=== PATIENT | male | born 1995 | race Caucasian/White ===

== ENCOUNTER 2024-04-27 17:24 | Emergency (ER) | payer OTHER, SELFPAY ==
[2024-04-27 17:37] VITALS: BP 109/62; PULSE 111; PULSE 120; RESP 18; TEMP 37.1; O2SAT 94; O2SAT 95; BMI 26.0
--- NOTE | 2024-04-27 17:44 | ED.GENADULT ---
HPI - General Adult General Chief complaint: ETOH/Substance Use Stated complaint: mental eval, possible substance use Time Seen by Provider: 04/27/24 17:43 Source: patient and EMS Mode of arrival: EMS Limitations: no limitations History of Present Illness ED Provider: Brianna Gaston PA-C HPI narrative: Patient is a 29 year old assigned male at with a history of polysubstance abuse presenting to the emergency department today after taking an unknown pill. Patient is currently at [facility] and because today is his birthday, he wanted to be high, and took 1 single tablet from a co-resident. Patient states that he does not know what it was. Patient denies any dizziness, lightheadedness, abdominal pain, nausea, vomiting, fever, chills, blurry vision, double vision, loss of vision, chest pain, difficulty breathing, shortness of breath, back pain, night sweats, pain with urination, increased urinary frequency, increased urinary urgency, blood in his urine or stool, syncope or a near syncopal episode, recent trauma or falls, bowel incontinence, bladder incontinence, or any other complaints at this time. Relieving factors: none Exacerbating factors: none Associated symptoms: denies other symptoms Treatments prior to arrival: none Related Data Allergies Allergy/AdvReac Type Severity Reaction Status Date / Time No Known Allergies Allergy Verified 04/27/24 17:41 Review of Systems Constitutional: Constitutional: Reports no additional constitutional complaints, Denies chills, Denies fever(s) and Denies night sweats Eyes: Eyes: Reports no additional eye complaints, Denies blurry vision, Denies change in vision, Denies diplopia, Denies eye discharge, Denies loss of vision and Denies eye pain ENT: Denies dizziness Cardiovascular: Cardiovascular: Reports no additional cardiovascular complaints, Denies chest pain, Denies lightheadedness, Denies Loss of Consciousness and Denies dyspnea Respiratory: Respiratory: Reports no additional respiratory complaints and Denies dyspnea Gastrointestinal: Gastrointestinal: Reports no additional gastrointestinal complaints, Denies abdominal pain, Denies melena, Denies hematochezia, Denies change in bowel habits and Denies change in stool character Genitourinary: Genitourinary: Reports no additional male genitourinary complaints, Denies hematuria, Denies oliguria, Denies difficulty urinating, Denies dysuria, Denies urinary frequency, Denies urinary hesitancy, Denies urinary incontinence and Denies urinary urgency Musculoskeletal: Musculoskeletal: Reports no additional musculoskeletal complaints, Denies numbness and Denies tingling Neurologic: Denies dizziness, Denies loss of vision, Denies numbness and Denies tingling Psychiatric: Psychiatric: Reports no additional psychiatric complaints Endocrine: Endocrine: Reports no additional endocrine complaints Hematologic/Lymphatic: Hematologic/Lymphatic: Reports no additional hematologic/lymphatic complaints Allergic/Immunologic: Allergic/Immunologic: Reports no additional allergic/immunologic complaints [facility] Past Medical History Attestation statement: The following information was validated with the patient. Source: old records reviewed and nursing notes reviewed Social History Social History Smoked in Last 30 Days: Yes Use of substances other than those prescribed or required for medical reasons: Yes Substance Use Type: Crack/Cocaine, Heroin and Opiates Substance Use Frequency: Daily Last Used Substance: Weeks (ago) Advance Directives: No Advance Directives Information Provided: No Do you have a plan to hurt others: No Plan Physical Exam ED Vital Signs: Vital Signs - 24 hr 04/27/24 17:37 04/27/24 17:46 Temperature 98.8 F 98.8 F Pulse Rate 111 H 111 H Respiratory Rate 18 18 Blood Pressure 109/62 109/62 Pulse Oximetry 95 95 Oxygen Delivery Method Room Air Room Air BMI result Body Mass Index 26.0 Const General: cooperative, no acute distress, alert and awake Nutritional Appearance: well nourished Orientation/consciousness: patient oriented x3 Limitations: no limitations [facility] Head: Yes normal to inspection and Yes atraumatic Ears: hearing grossly normal bilaterally and external ears normal General nose exam: Normal external nose present, no nasal discharge noted and no epistaxis Face and sinus: Yes normal facial exam, No abrasion and No laceration Mouth: Normal oral and palatal mucosa present, no drooling and no muffled voice Eyes General: appearance normal, both eyes and all related structures Periorbital: periorbital findings normal Eyelids: Yes eyelids normal Conjunctivae: conjunctivae normal Pupils: Equal, round and reactive pupils present EOM: EOMs intact bilaterally Neck Neck: Yes normal visual inspection, Yes full ROM and Yes no lymphadenopathy Chest Chest palpation & inspection: normal inspection of the chest Resp Effort & Inspection: normal respiratory effort and able to speak in complete sentences GI Inspection: Yes normal to inspection Neuro General: patient oriented x3, moves all extremities and CN's II-XI intact bilaterally Cranial nerves: Yes Equal, round and reactive pupils present Cognition (Neuro): normal cognition Extrem General: Yes normal to inspection, Yes full ROM and Yes capillary refill normal Psych Appearance: grossly normal Mental Status: mental status grossly normal Affect: normal affect Attitude: cooperative Thought process: Normal thought process present Thought content: Normal thought content present Insight: Good insight present (Psych) Medical Decision Making Medical Decision Making [facility] Narrative: Patient is a 29 year old assigned male at with a history of polysubstance abuse presenting to the emergency department today after taking an unknown pill. Patient's physical exam was largely unremarkable. Patient was somewhat tired during his time in the department but otherwise alert and oriented. Patient's blood work was unremarkable. Patient's urine showed evidence of methadone, suboxone, and fentanyl. I explained my physical exam findings as well as all test results to the patient. I answered all questions asked by the patient. Patient was allowed to rest in the department. I stressed the importance of the patient taking his medication as directed (either prescribed or as the over the counter packaging recommends). I stressed the importance of the patient not ingesting unknown medications given to him by co-residents. I stressed the importance of the patient following up with his primary care provider. I stressed the importance of the patient returning to the emergency department immediately if his symptoms were to worsen or if he were to develop any dizziness, shortness of breath, difficulty breathing, chest pain, blurry vision, loss of vision, nausea, vomiting, abdominal pain, fever, chills, back pain, or any other complaints. Patient verbalized agreement and understanding with this treatment plan and discharge back to [facility]. Differential Diagnosis Differential Diagnoses: The differential diagnosis associated with the presentation includes Unknown substance use Polysubstance abuse Admission/Observation Consideration of admission/observation: Escalation of care including admission/observation considered Patient would have been admitted to the hospital had his work up had any findings where hospital admission was appropriate and his clinical presentation warranted hospital admission. Lab Data [facility] Lab Attestation statement: I reviewed the patient's lab results. My interpretation of these results are in the [facility] Rationale portion of this note. 04/27/24 17:51 04/27/24 17:51 Labs: Lab Results 03/22/25 Range/Units 17:51 WBC 8.3 (4.8-10.8) X10*3/uL RBC 4.60 (4.60-5.80) X10*6/uL Hgb 14.2 (14.0-18.0) g/dl Hct 42.0 (42.0-52.0) % MCV 91.3 (80.0-98.0) fL MCH 30.9 (27.0-33.0) pg MCHC 33.8 (31.0-36.0) g/dl RDW 12.7 (11.0-16.0) % Plt Count 243 (160-400) X10*3/uL MPV 8.7 L (9.4-12.4) fL Immature Gran % (Auto) 0.2 (0.0-0.4) % Neut % (Auto) 84.5 H (45-73) % Lymph % (Auto) 9.1 L (20-40) % [place] % (Auto) 5.4 (2-11) % Eos % (Auto) 0.2 (0-4) % Baso % (Auto) 0.6 (0-2) % Lymph # (Auto) 0.8 L (1.2-4.9) X10*3/uL [place] # (Auto) 0.5 (0.1-1.2) X10*3/uL Eos # (Auto) 0.0 (0.0-0.4) X10*3/uL Baso # (Auto) 0.1 (0.0-0.2) X10*3/uL Abs Immat Gran (auto) 0.02 (0.00-0.03) X10*3/uL Absolute Neuts (auto) 7.0 (2.0-8.3) x10*3/uL Absolute Nucleated RBC 0.000 (0.0-0.012) X10*3/uL Nucleated RBC % (auto) 0.0 (0.0-0.2) /100WBC Sodium 139 (135-145) mmol/L Potassium 5.0 (3.3-5.1) mmol/L Chloride 98 (96-108) mmol/L Carbon Dioxide 31 H (22-29) mmol/L Anion Gap 15 (12-20) BUN 11 (9-16) mg/dL Creatinine 1.09 (0.5-1.4) mg/dL Estim Creat Clear Calc 108.7 Estimated GFR > 60 Random Glucose 151 H (60-115) mg/dL Calcium 9.4 (8.4-10.2) mg/dL Total Bilirubin 0.4 (0.0-1.0) mg/dL AST 17 (5-37) U/L ALT 10 (0-40) U/L Alkaline Phosphatase 55 (39-117) U/L Total Protein 8.4 H (6.5-8.0) g/dL Albumin 4.2 (3.5-5.0) g/dL Salicylates < 5.0 L (15-30) mg/dL Urine Opiates Screen Not Detected (Not Detect) Ur Buprenorphine Scrn Positive H (Not Detect) ng/mL Ur Oxycodone Screen Not Detected (Not Detect) ng/mL Urine Methadone Screen Positive H (Not Detect) ng/mL Urine Fentanyl Screen POSITIVE H (Not Detect) Ur Barbiturates Screen Not Detected (Not Detect) Ur Phencyclidine Scrn Not Detected (Not Detect) Ur Amphetamines Screen Not Detected (Not Detect) U Benzodiazepines Scrn Not Detected (Not Detect) Urine Cocaine Screen Not Detected (Not Detect) U Marijuana (THC) Screen Not Detected (Not Detect) Ethyl Alcohol < 10 mg/dL Independent Historian Clinical information obtained from an independent historian. History obtained from or confirmed by: EMS (EMS provided additional history and confirmed the history provided by the patient.) Discharge Plan Discharge Clinical Impression: Substance use Patient Disposition: Xfer Psychiatric Hosp Transfer Details: Back to [facility] Instructions: Polysubstance Abuse (ED) Additional Instructions: You were seen today for substance use / abuse however, you are already staying within a substance use / abuse facility for treatment. Return to the emergency department immediately if your symptoms worsen or if you develop any numbness, tingling, dizziness, shortness of breath, difficulty breathing, chest pain, blurry vision, loss of vision, nausea, vomiting, abdominal pain, fever, chills, back pain, or any other complaints. Please see the information below about our Patient Portal. If you are not yet enrolled in the [facility] Patient Portal, you will receive an enrollment email invitation following your visit to any [facility] care setting. You may also self-enroll in the Patient Portal by visiting our website: [email or web address] The following information is required to access the Patient Portal: - Your [facility] Medical Record Number - Your personal home email address (must match what is in your electronic medical record, Registration staff can assist with this) - Name - Date of Capabilities of the Patient Portal: - Message some providers - View upcoming appointments - Access your health summary, medical history, and visit history - View current conditions and allergies - View procedure and lab results - View your medications, including guidelines, side effects, and precautions - Complete pre-appointment questionnaires requested by your provider - Ready summary reports of your office visits and procedures To access the Patient Portal Mobile Martir, follow these directions: - Search Fiz in the Martir Store or Audioscribe Store - Download the Martir - Search for [facility] - Enter your login/password Referrals: [facility] [place] [Provider Group] (Call to establish and follow up with a primary care provider. If you already have a primary care provider, please follow up with them.) [facility] Primary Care, Joseph [Provider Group] (Call to establish and follow up with a primary care provider. If you already have a primary care provider, please follow up with them.) [facility] Primary Care,Melania [Provider Group] (Call to establish and follow up with a primary care provider. If you already have a primary care provider, please follow up with them.) [facility] Care[facility] [Provider Group] (Call to establish and follow up with a primary care provider. If you already have a primary care provider, please follow up with them.) Print Language: Portuguese
[2024-04-27 17:46] VITALS: BP 109/62; PULSE 111; RESP 18; TEMP 37.1; O2SAT 95
--- NOTE | 2024-04-27 17:50 | PC.NURSE ---
Addendum entered by Marilu Helms RN 04/27/24 18:37: Pt denies SI/HI at this time. Pt adamantly denies that taking the reported pill was an attempt to take his life. Original Note: Pt comes to ED today via EMS from [facility] for reports of decrease responsiveness and O2 sat of 80% Pt reports today is his birthday and he took 1 pill (Pt reports Gabapentin) from another resident. Per EMS, Pt was found by [facility] staff to be difficult to arouse and with an O2 sat of 80%. With EMS, PTs was sating at 94%. Pt is alert and oriented at time of arrival. Speech is slurred. Pt is calm and cooperative. VSS, sating at 95% Security present and change Pt into hospital attire. Blood work and urine spec sent to lab. Pt resting comfortably on stretcher. 1:1 sitter present.
[2024-04-27 17:55] LABS: MANUAL DIFF FLAG NO
[2024-04-27 17:57] LABS: Basophils Absolute Auto 0.1 X10*3/uL (0.0-0.2); Basophils Percent Auto 0.6 % (0-2); Eosinophils Percent Auto 0.2 % (0-4); Hemoglobin 14.2 g/dl (14.0-18.0); Imm Gran Abs Auto 0.02 X10*3/uL (0.00-0.03); Imm Gran Pct Auto 0.2 % (0.0-0.4); Lymphocytes Absolute Auto 0.8 X10*3/uL (1.2-4.9); Lymphocytes Percent Auto 9.1 % (20-40); Mean Corpuscular HGB Conc 33.8 g/dl (31.0-36.0); Mean Corpuscular Hemoglobin 30.9 pg (27.0-33.0); Mean Corpuscular Volume 91.3 fL (80.0-98.0); Mean Platelet Volume 8.7 fL (9.4-12.4); Monocytes Absolute Auto 0.5 X10*3/uL (0.1-1.2); Monocytes Percent Auto 5.4 % (2-11); Neutrophils Percent Auto 84.5 % (45-73); Platelet Count 243 X10*3/uL (160-400); Red Cell Distribution Width 12.7 % (11.0-16.0); White Blood Count 8.3 X10*3/uL (4.8-10.8)
--- OUTSIDE RECORDS SUMMARY | 2024-04-27 17:57 | XMS_ITS | Clinical Summary ---
Author Organization [email or web address] Address [address] [place] [address] [address] Care Team Providers Care Naval Aircre[employer] Name Role Phone Dale Pressley Md Unavailable [phone] Lake Tabares Md Primary Care Provider [phone] Allergies No known active allergies Medications QUEtiapine (SEROQUEL) 300 mg tablet Take 1 tablet by mouth daily 8 Active divalproex 500 mg tablet,delayed release (DR/EC) Take 1 tablet by mouth daily 8 Active ketoconazole 2 % Cream Apply to feet and between toes twice daily x 1 month 60 gram 2 8 Active terbinafine HCl 250 mg tablet 1 tab daily x 6 weeks (42 pills), then retest bloodwork. If normal, refill for an additional 6 weeks (a full course is 12 weeks, 84 pills). 42 tablet 1 8 Active Active Problems Problem Noted Date Diagnosed Date Extensive tattoos 06/06/2017 Overview (06/06/2017): Told no more Schizoaffective disorder, bipolar type 8 Overview (06/06/2017): Disability - bipolar and schizophrenia - Dr Beard - [phone] - [facility] Physical exam, annual 06/06/2017 Overview (06/06/2017): Pending - 2018 Wt Readings from Last 5 Encounters: 06/06/17 : 185 lb 4.8 oz (84.1 kg) 11/11/10 : 197 lb (89.4 kg) 06/22/10 : 186 lb (84.4 kg) 05/06/09 : 154 lb (69.9 kg) 04/21/09 : 150 lb (68 kg) Estimated body mass index is 26.4 kg/(m^2) as calculated from the following: Height as of this encounter: 5' 10.25 (1.784 m). Weight as of this encounter: 185 lb 4.8 oz (84.1 kg). Rey de la Tourette's disorder 12/05/2006 Obsessive-compulsive disorder 12/05/2006 Learning difficulty 12/05/2006 Immunizations Name Administration Dates Next Due DTaP Vaccine 10/08/1999, 6,1994,09/06,1994 HFlu B Conj (Unspecified Formulation) ,1994,1994,06/27 Hep B Vaccine (Unspecified Formulation) 02/17/1995,1994,1994 MMR Vaccine 10/08/1999,08/08/1995 Meningococcal ACWY (Menactra ) Conjugate Vaccine 12/05/2006 Polio Vaccine (Inactivated) 10/08/1999 Polio Vaccine (Oral,Trivalent) 1994,1994,1994 TdaP 12/05/2006 Varicella Disease 02/06/1995 Medical History Medical History Date Comments Extensive tattoos 06/06/2017 Rey de la Tourette's disorder 12/05/2006 Schizoaffective disorder, bipolar type ([facility]) 06/06/2017 Learning difficulty 12/05/2006 Obsessive-compulsive disorder 12/05/2006 Family History Medical History Relation Comments Substance abuse Brother Relation Status Comments Brother Social History Tobacco Use Types Packs/Day Years Used Date Smoking Tobacco: Every Day Cigarettes 0.1 6 Smokeless Tobacco: Never Comments:2 cigarettes/day - trhying to quit Alcohol Use Standard Drinks/Week Comments Yes 0 (1 standard drink = 0.6 oz pur e alcohol) Sex and Gender Information Value Date Recorded Sex Assigned at Not on file Legal Sex Male 3:37 AM EDT Gender Identity Not on file Sexual Orientation Not on file Occupation Industry Job Start Date Job End Date on disability Not on file Not on file Not on file Obstetrics History Last Filed Vital Signs Vital Sign Reading Time Taken Comments Blood Pressure 104/68 06/06/2017 12:33 PM EDT Pulse 68 06/06/2017 12:33 PM EDT Temperature 37 ??C (98.6 ??F) 06/06/2017 12:33 PM EDT Respiratory Rate 16 06/06/2017 12:33 PM EDT Oxygen Saturation 96% 06/15/2010 10:54 AM EDT Inhaled Oxygen Concentration - - Weight 84.1 kg (185 lb 4.8 oz) 06/06/2017 12:33 PM EDT Height 178.4 cm (5' 10.25 ) 06/06/2017 12:33 PM EDT Body Mass Index 26.4 06/06/2017 12:33 PM EDT Plan of Treatment Health Maintenance Due Date Last Done Comments OFFICE VISIT 1994 * GLUCOSE OR A1C SCREENING - Q3YR 2012 05/08/2007 HEP B INITIAL SCREENING 2012 HEP C SCREENING 2012 HIV SCREENING 2012 LIPID SCREENING 2014 PERIODIC HEALTH REVIEW 2016 DTAP/TDAP/TD VACCINE (7 - Td or Tdap) 12/05/2016 12/05/2006, 10/08/1999, 08/08/1995, Additional history exists COVID-19 Vaccine ( season) 2023 FLU SEASONAL (#1) 10/08/2023 HEPATITIS B VACCINE Completed 02/17/1995, 1994, 1994 HAEMOPHILUS INFLUENZA VACCINE Completed 08/18/1995, 1994, 1994, Additional history exists POLIO VACCINE Completed 10/08/1999, 11/06, 1994, Additional history exists HEPATITIS A VACCINE Aged Out No longe r eligible based on patient's age to complete this topic PNEUMOCOCCAL VACCINE(S) Aged Out No l onger eligible based on patient's age to complete this topic RSV Vaccine Infant//toddler Aged Out No longer eligible based on patient's age to complete this topic Procedures Procedure Name Priority Date/Time Associated Diagnosis Comments BASIC METABOLIC PROFILE Routine 05/08/2007 4:05 PM EDT HEMATURIA from Last 3 Months or Most Recently Relevant to Health Maintenance Results * BASIC METABOLIC PANEL (05/08/2007 4:05 PM EDT) SODIUM 138 135 - 145 mmol/L [facility] POTASSIUM 4.2 3.6 - 5.2 mmol/L [facility] CHLORIDE 105 100 - 112 mmol/L [facility] CARBON DIOXIDE 28 24 - 34 mmol/L [facility] GLUCOSE 101 75 - 110 mg/dL [facility] BUN 17.0 5.0 - 24.0 mg/dL [facility] CREATININE 0.8 0.5 - 1.6 mg/dL [facility] CALCIUM 9.4 8.3 - 9.9 mg/dL [facility] Comment: Prior to 07/12/2005 calcium normal range was 8.4-10.6 mg/dL. From 07/12/2005 to ?? 08/26/2005 calcium normal range was 8.0-9.4 mg/dL. From 08/26/2005 forward calcium normal range is 8.3-9.9 mg/dL. 05/08/2007 4:05 PM EDT 05/08/2007 4:05 PM EDT Bobby Dupree [facility] GENERAL LAB Final Resu lt [facility] [address] [place] [address] from Last 3 Months or Most Recently Relevant to Health Maintenance Care Teams [employer] Relationship Specialty Start Date End Date Dale Pressley MD [address] [place] [address] PCP - Payer 06/05/17 Lake Tabares MD [address] [place] [address] PCP - General Internal Medicine 06/05/17
--- OUTSIDE RECORDS SUMMARY | 2024-04-27 17:57 | XMS_ITS ---
Author Organization [facility] Address [address] [place] [address] Care Team Providers Care Grade Foreman Name Role Phone Joseelizabet Jay Unavailable [phone] REASON FOR VISIT ELIGIBILITY Encounters Encounter Location Date Provider Diagnosis [facility] [address] [place], [place] [id number] 11/28/2023 Jay White Plan Of Treatment No Information Progress Notes * Jason BORGESDOB:[birth year] (28 yo M)Acc No.[id number]:11/28/2023 Patient:?Jason BORGES :1995???Age:28 Y???Sex:Male Address:[address] [place], [address] * true * Date:? Generated for Printi ng/Faemelyng/eTransmitting on:?2024 12:42 PM EDT
--- OUTSIDE RECORDS SUMMARY | 2024-04-27 17:57 | XMS_ITS ---
Author Organization [facility] Address [address] [place] [address] Care Team Providers Care Concrete Paving Supervisor Name Role Phone Joseelizabet Jay Unavailable [phone] REASON FOR VISIT ELIGIBILITY Encounters Encounter Location Date Provider Diagnosis [facility] [address] [place], [place] [id number] 11/28/2023 Jay White Plan Of Treatment No Information Progress Notes * Jason BORGESDOB:[birth year] (28 yo M)Acc No.[id number]:11/28/2023 Patient:?Jason BORGES :1995???Age:28 Y???Sex:Male Address:[address] [place], [address] * true * Date:? Generated for Printi ng/Faemelyng/eTransmitting on:?2024 12:42 PM EDT
--- OUTSIDE RECORDS SUMMARY | 2024-04-27 17:57 | XMS_ITS | Patient Health Record ---
Author Organization [facility] Address [address] [place], [place] [id number] Care Team Providers Care Automated Equipment Engineer Technician Name Role Phone Thiago Sethi Unavailable [phone] Allergies No Known Allergies Reason For Referral No Information Medications Medication SIG (Take, Route, Frequency, Duration) Notes Start Date End Date Status FLUoxetine HCl 40 MG 1 capsule Orally On ce a day Active Divalproex Sodium 500 MG 1 tablet Orally Once a day Active hydrOXYzine HCl 25 MG 1 tablet as needed Orally Once a day Active QUEtiapine Fumarate 400 MG 1 tablet Oral ly Once a day Active Vital Signs Blood pressure diastolic 58 mm Hg 07/25/2023 Height 72 in 07/25/2023 Blood pressure systolic 96 mm Hg 07/25/2023 Weight 145 lbs 07/25/2023 BMI 19.66 kg/m2 07/25/2023 Encounters Encounter Location Date Provider Diagnosis [facility] [address] [id number] 07/25/2023 Anit Sethi Fracture of mandible , unspecified, sequela S02.609S [facility] [address] [id number] 07/24/2023 Anit Sethi [facility] [address] [id number] 07/26/2023 Anit Sethi Assessments Encounter Date Diagnosis (ICD Code) Assessment Notes Treatment Notes Treatment Clinical Notes Section Notes 07/25/2023 Fracture of mandible, unspecified, sequela (ICD-10 - S02.609S) The patient has sustained a right mandible fracture with an open bite deformity. We will refer him to the surgery department at [facility] for consideration of mandibulomaxillary fixation for potentially 4 to 6 weeks. Plan Of Treatment No Information Insurance Providers Payer Name Payer Address Payer Phone Subscriber Number Group Number Insured Name Patient Relationship to Insured Coverage Start Date Coverage End Date [address] [place] [address] [id number] JAMES BORGES Self - patient is the insured
--- OUTSIDE RECORDS SUMMARY | 2024-04-27 17:58 | XMS_ITS ---
Author Organization [facility] Address [address] [place], [place] [id number] Care Team Providers Care Head Of Cytogenetics Name Role Phone Navdeep, Anit Unavailable [phone] REASON FOR VISIT MASS AC CALLED Encounters Encounter Location Date Provider Diagnosis [facility] [address] [place], [place] [phone] 07/26/2023 Anit Sethi Plan Of Treatment No Information Progress Notes * GLADYSJAMES RAMÍREZDOB:[birth year] (28 yo M)Acc No.[id number]:07/26/2023 Patient:?JAMES BORGES :1995???Age:28 Y???Sex:Male Address:[address], [place], [address] * true * Date:? Generated for Printi byron/Tegang/eTransmitting on:?2024 12:42 PM EDT
--- OUTSIDE RECORDS SUMMARY | 2024-04-27 17:58 | XMS_ITS ---
Author Organization [facility] Address [address] [place], [place] [id number] Care Team Providers Care Alternative Energy Technician Name Role Phone Navdeep, Ansergey Unavailable [phone] REASON FOR VISIT 07/25/2023 SETHI 10 Encounters Encounter Location Date Provider Diagnosis [facility] [address] [place], [place] [id number] 07/24/2023 Anit Sethi Plan Of Treatment No Information Progress Notes * ALYSSAJAMES MAXDOB:[birth year] (29 yo M)Acc No.[id number]:07/24/2023 Patient:?JAMES BORGES :1995???Age:28 Y???Sex:Male Address[address] [place], [address] * * Date:?
--- OUTSIDE RECORDS SUMMARY | 2024-04-27 17:58 | XMS_ITS | Data Portability ---
Author Organization [facility] UROLOGY Address [address] [address] Assessment Encounter Date Assessment Date Assessment LastModified by Organization Details LastModified Time 12/26/2023 12/26/2023 28M with PMHx of extensive mood disorder, who presents to the clinic with his mother Marilu for medication refills. Was recently admitted to [facility] psychiatric unit, got discharged from [facility]; needs new psychiatry referral. He is feeling a little tired today but denies chest pain, palpitations, or other discomforts. [email or web address] Not available 12/26/2023 12:15:16 Plan of Treatment Reminders Order Date Submit Date Provider Last Modified By Organization Details Last Modified Time Details Appointments None recorded. Lab CMP, serum or plasma 2022 023 [facility], [address], [address], 3 03:17:40 microalbumi n/creatinin e, mass ratio, urine 2022 023 [facility], [address], [address], 3 03:17:40 lipid panel, serum 2022 023 [facility], [address] [place] [address], [address], 3 03:17:41 HbA1c (hemoglobin A1c), blood 2022 023 [facility], [address], [address], 3 03:17:41 CBC w/ auto diff 2022 023 [facility], [address] [place] [address], [address], 3 03:17:42 urinalysis, dipstick, reflex micro 2022 023 [facility] [facility], [address], [address], 3 03:17:42 hepatitis C virus Ab, serum 2022 023 [facility], [address] [place] [address], [address], 3 03:17:42 TSH, serum or plasma 2022 023 [place] [facility], [address] [place] [address], [address], 3 03:17:43 Referral psychiatris t referral 2023 024 LIDA Palma MD, [address] [facility] [address], [place], [address], 4 04:03:25 urologist referral - infertility 2022 023 Young Myrick MD, 31 [facility] 203, [place], [address], 3 05:19:43 Procedures None recorded. Surgeries None recorded. Imaging None recorded. Medication Orders quetiapine 50 mg tablet 2023 024 [facility]1871, [address] [place], [address], 4 12:01:15 divalproex ER 500 mg tablet,exte nded release 24 hr 2023 024 [facility], [address] [place], [address], 4 12:01:15 sildenafil 100 mg tablet [address], [address] [facility], [place], [address], 4 11:57:17 clonazepam 0.5 mg tablet 2022 023 [address] [facility] [address] [place] [address], [address], 4 11:56:26 fluoxetine 20 mg capsule 2022 023 [address] [address] [address] [place] [address], [address], 4 11:56:50 Seroquel 400 mg tablet 2022 023 [address] [address] [place] [address], [address], 4 11:55:30 divalproex ER 500 mg tablet,exte nded release 24 hr 2022 023 [facility] [address] [place] [address], [address], 3 13:29:34 clonazepam 0.5 mg tablet 2022 023 [address] [place], [address], 4 11:56:26 Depakote ER 500 mg tablet,exte nded release 2022 023 [facility] [address] [place] [address], [address], 3 22:14:08 Seroquel 400 mg tablet 2022 023 [email or web address] [facility], [address] [place], [address], 4 11:55:30 fluoxetine 20 mg capsule 2022 023 [email or web address] [facility]acy #1873, [address] [place], [address], 4 11:56:50 sildenafil 100 mg tablet [address] [facility], [address] [place], [address], 11:57:17 Patient TargetsNo targets recorded. Patient Instructions Encounter Date Encounter Id Patient Instructions Last Modified By Organization Details Last Modified Time 06/14/2022 [id number] infertility: car e instructions [email or web address] Not available 06/14/2022 14:15:07 10/14/2022 [id number] schizophrenia: care instructions Not available 10/15/2022 18:23:57 learning about mood disorders Not available 10/14/2022 17:19:58 obsessive-compul s norman disorder: care instructions Not available 10/14/2022 17:19:58 07/28/2023 [id number] broken jaw: care instructions Not available 07/29/2023 09:43:03 eating when your jaw IS wired: care instructions Not available 07/29/2023 09:43:03 Reason for Referral Urologist Referral for Male infertility infertility Referring Physician: Ronaldo Reyes, Internal Medicine, Encounter Date: 06/14/2022 Psychiatrist Referral for Mo od disorder history of mood disorder on Seroquel, haldol injection, and divalproex Referring Physician: Pauline Hull, Internal Medicine, Encounter Date: 12/26/2023 Results Created Date Observation Date Name Description Value Unit Range Abnormal Flag Note LastModifiedBy Organization Detail LastModifiedTime 06/19/19 23 06/18/2022 imagi ng inter preta tion No observ ation record ed. [facility] (Medical Records) [address] [place], [address], 06/19/2022 00:54:42 08/05/19 23 08/04/2022 US, scrot um No observ ation record ed. [email or web address] [facility] (Medical Records) [address] [place], [address], 12/21/2023 21:48:20 06/04/19 24 06/04/2023 XR, chest No observ ation record ed. [facility] (Medical Records) [address] [place], [address], 04/18/2024 15:38:32 06/04/19 24 06/04/2023 elect rosalie stan am No observ ation record ed. [facility] Medical Records [address] [place], [address], 04/18/2024 15:38:42 Result Notes None recorded. Problems Name Problem SNOMED Code Status Onset Date Resolution Date Notes Provider Name and Address Organization Details Recorded Time Annual visit Active 2021 RONALDO REYES MD [address] [place] [address], [address] 8, [facility] 2 10:49:32 Joint pain 45490895 Active 2021 RONALDO REYES MD [address] [place] [address], [address] 8, [facility] 2 10:49:32 Anxiety 96010716 Active 2021 RONALDO REYES MD [address] [place] [address], [address] 8, [facility] 2 10:49:32 Bipolar disorder 54262183 Active 2021 RONALDO REYES MD [address] [place] [address], [address] 8, [facility] 2 10:49:32 Schizophrenia 88993488 Active 2021 RONALDO REYES MD [address] [place] [address], [address] 8, [facility] 2 10:49:32 Chronic pain syndrome 590828148 Active 2021 RONALDO REYES MD [address] [place] [address], [address] 8, [facility] 2 12:10:12 Mood disorder 26344628 Active 2021 RONALDO REYES MD [address] [place] [address], [address] 8, [facility] 2 12:10:12 Substance abuse 45640929 Active 2022 RONALDO REYES MD [address] [place] [address], [address] 8, [facility] 3 09:55:13 Erectile dysfunction 834399627 Active 2022 RONALDO REYES MD [address] [place] [address], [address] 8, [facility] 3 09:56:12 Male infertility 8148018 Active 2022 RONALDO REYES MD [address] [place] [address], [address] 8, [facility] 3 14:08:38 Obsessive-comp ulsive disorder 052332729 Active 2022 RONALDO REYES MD [address] [place] [address], [address] 8, [facility] 3 17:06:26 Fracture of mandible 191871089 Active 2023 RONALDO REYES MD [address] [place] [address], [address] 8, [facility] 4 09:43:00 Problem Notes None recorded. Procedures Surgical History None recorded. Imaging Results Imaging Date Name Status LastModified by Organization Details LastModified Time 06/18/2022 imaging interpretation completed [facility] (Medical Records) [address] [place], [address], 06/19/2022 00:54:42 08/04/2022 US, scrotum completed [email or web address] [facility] (Medical Records) [address] [place], [address], 12/21/2023 21:48:20 06/04/2023 XR, chest completed [facility] (Medical Records) [address] [place], [address], 04/18/2024 15:38:32 06/04/2023 electrocardiogram completed [facility] Medical Records [address] [place], [address], 04/18/2024 15:38:42 Procedure Notes None recorded. Medical Equipment None Reported. Allergies No known drug allergies Medications Name Sig Start Date Stop Date Status Note LastModified by Organization Details LastModified Time clonidine HCl 0.1 mg tablet 12/25 completed Not Available Not Available Not Available haloperidol 5 mg tablet active Not Available Not Available Not Available levetiracet am 500 mg tablet TAKE 1 TABLET BY MOUTH TWICE A DAY 12/25 completed Not Available Not Available Not Available diclofenac ER 100 mg tablet,exte nded release 24 hr 03/23 completed Not Available Not Available Not Available haloperidol decanoate 100 mg/mL intramuscul ar solution INJECT 1.5 ML (150 MG TOTAL) DIRECTED EVERY 28 DAYS. NEXT INJECTION IS DUE ON active Not Available Not Available No t Available clonazepam 0.5 mg tablet TAKE 1 TABLET TWICE A DAY BY ORAL ROUTE NEEDED. 12/25 completed Not Available Not Available Not Available prednisone 5 mg tablet TAKE 7 TABLETS BY MOUTH ONCE A DAY THEN DECREASE BY 1 TABLET EACH DAY 7 6 5 4 3 2 1 03/23 completed Not Available Not Available Not Available divalproex 500 mg tablet,jean carlos yed release TAKE 1 TABLET BY MOUTH AT BEDTIME DIRECTED 11/15 completed Not Available Not Available Not Available quetiapine 100 mg tablet active Not Available Not Available Not Available sildenafil 100 mg tablet Take 1 tablet every day by oral route. 12/25 completed Not Available Not Available Not Available cephalexin 500 mg capsule 03/23 completed Not Available Not Available Not Available divalproex ER 500 mg tablet,exte nded release 24 hr Take 2 tablets every day by oral route at bedtime for 90 days. active Not Available Not Available No t Available gabapentin 300 mg capsule TAKE 1 CAPSULE BY MOUTH EVERY NIGHT AT BEDTIME FOR 3 DAYS THEN TAKE 1 CAPSULE TWICE DAILY FOR 3 DAYS THEN TAKE 1 CAPSULE THREE TIMES DAILY 03/23 completed Not Available Not Available Not Available haloperidol 2 mg tablet active Not Available Not Available Not Available fluoxetine 20 mg capsule Take 1 capsule every day by oral route. 12/25 completed Not Available Not Available Not Available hydroxyzine pamoate 25 mg capsule 12/25 completed Not Available Not Available Not Available divalproex ER 250 mg tablet,exte nded release 24 hr TAKE 3 TABLETS BY MOUTH TWICE A DAY 12/25 completed Not Available Not Available Not Available quetiapine 50 mg tablet Take 1 tablet every 6 hours by oral route as needed for 30 days. 2023 active Not Available Not Available Not Avai lable quetiapine 400 mg tablet TAKE 1 TABLET BY MOUTH TWICE A DAY active Not Available Not Available No t Available Vitals Date Recorded Body height Body mass index (BMI) Body weight Heart rate Oxygen saturation Oxygen saturation in Arterial blood by Pulse oximetry Systolic blood pressure Diastolic blood pressure Provider Name and Address Organization Details Last Updated DateTime 3 180.34 cm 20.2 kg/m2 66525.4 6 g 73 /min 98 % 98 % 127 mm[Hg] 79 mm[Hg] RONALDO REYES MD [address] [place] [phone] [place] [address] 3 13:34:30 Date Recorded Body height Heart rate Oxygen saturation Oxygen saturation in Arterial blood by Pulse oximetry Body mass index (BMI) Body weight Respiratory rate Heart rate Pain severity - 0-10 verbal numeric rating [Score] - Reported Systolic blood pressure Diastolic blood pressure Provider Name and Address Organization Details Last Updated DateTime 3 180.34 cm 72 /min 98 % 98 % 19.1 kg/m2 22262.4 4 g 1 /min 72 /min 0 110 mm[Hg] 72 mm[Hg] RONALDO REYES MD [address] [place] [phone] [place] [address] 3 17:59:50 Date Recorded Body height Body mass index (BMI) Body weight Heart rate Oxygen saturation Oxygen saturation in Arterial blood by Pulse oximetry Respiratory rate Heart rate Pain severity - 0-10 verbal numeric rating [Score] - Reported Systolic blood pressure Diastolic blood pressure Provider Name and Address Organization Details Last Updated DateTime 3 180.34 cm 19.1 kg/m2 64944.4 4 g 72 /min 98 % 98 % 16 /min 72 /min 0 110 mm[Hg] 72 mm[Hg] RONALDO REYES MD [address] [place] [address], [address], [facility] 3 00:58:11 Date Recorded Body height Heart rate Oxygen saturation Oxygen saturation in Arterial blood by Pulse oximetry Body mass index (BMI) Body weight Respiratory rate Systolic blood pressure Diastolic blood pressure Provider Name and Address Organization Details Last Updated DateTime 4 180.34 cm 70 /min 100 % 100 % 21.1 kg/m2 96406.4 5 g 18 /min 122 mm[Hg] 78 mm[Hg] RONALDO REYES MD [address] [place] [address], [address] 8, [facility] 4 18:00:09 Date Recorded Oxygen saturation Oxygen saturation in Arterial blood by Pulse oximetry Heart rate Systolic blood pressure Diastolic blood pressure Provider Name and Address Organization Details Last Updated DateTime 4 98 % 98 % 74 /min 106 mm[Hg] 62 mm[Hg] PAULINE HULL NP [address] [place] [address], [address] 8, [facility] 4 12:04:25 Social History Question Answer Notes LastModified by Organizat ion Details LastModified Time Tobacco Smoking Status Current Every Day Smoker half a pack a day Lily Garay [facility], [facility] 05/03/2021 14:09:23 Do You Have An Advance Directive? No Information not available 03/21/2021 What Is Your Level Of Alcohol Consumption? Occasional Information not available 05/03/2021 Are You Blind Or Do You Have Difficulty Seeing? No Information not available 03/21/2021 What Is Your Level Of Caffeine Consumption? Occasional Information not available 03/21/2021 What Type Of Seamstress Fitter Do You Use? None Information not available 03/21/2021 In The 14 Days Before Symptom Onset, Have You Had Close Contact With A Laboratory-confi rmed COVID-19 While That Case Was Ill? No Information not available 03/21/2021 In The 14 Days Before Symptom Onset, Have You Had Close Contact With A Person Who Is Under Investigation For COVID-19 While That Person Was Ill? No Information not available 03/21/2021 Have You Been To An Area Known To Be High Risk For COVID-19? No Information not available 03/21/2021 Are You Currently Employed? Yes Information not available 03/21/2021 Are You Deaf Or Do You Have Serious Difficulty Hearing? No Information not available 03/21/2021 What Type Of Diet Are You Following? REGULAR Information not available 03/21/2021 Have You Been Exposed To Chemicals Or Toxins? No Information not available 03/21/2021 Are There Any Guns Present In Your Home? No Information not available 03/21/2021 Do You Use Insect Repellent Routinely? No Information not available 03/21/2021 Activity Duration 30 To 60 Minutes/day Information not available 07/05/2021 Activity Time Of Day Afternoon Information not available 07/05/2021 Were You Hospitalized Related To Your Condition Recently? No Information not available 03/21/2021 Medication Compliance Very Good Information not available 07/05/2021 Last Diabetic Eye Exam 05/03/2021 Referred Information not available 07/05/2021 CO Detectors In Home? Yes Information not available 07/05/2021 DNR/DNI? No Information no t available 07/05/2021 DNH? No Information no t available 07/05/2021 Full Code? Yes Information no t available 07/05/2021 IV Meds/Fluids? No Informati on not available 07/05/2021 IM Meds? No Information no t available 07/05/2021 Healthcare Proxy No Informat ion not available 07/05/2021 Hospice? No Information no t available 07/05/2021 Does The Patient Experience Significant Stress? No Information not available 03/21/2021 Do You Feel Safe At Home? Yes Information not available 03/21/2021 Are You Being Threatened/ Abused By Someone? No Information not available 03/21/2021 Teaching Recipient: Patient Information not available 07/05/2021 Learning Preference: One-on-one Instruction Information not available 07/05/2021 Learning / Adherence Barriers: None Information not available 07/05/2021 Readiness To Learn: Excellent Information not available 07/05/2021 Teaching Methods: Discussion Information not available 07/05/2021 Learning Response: Able To Teach Back Information not available 07/05/2021 Medication Understanding: Completed Information not available 07/05/2021 Are You Taking Your Medications As Directed? Yes Information not available 07/05/2021 Are Your Medications Helping? Yes Information not available 07/05/2021 Medication Barriers N/a Information not available 07/05/2021 Date Of Assessment 05/03/2021 Information not available 07/05/2021 Are You Currently Taking Any Medications, Including [id number] Or Herbal Therapies? Yes Information not available 07/05/2021 Group Home? No Information not available 07/05/2021 Assisted Living? No Informat ion not available 07/05/2021 Have You Or Anyone In Your Immediate Family Ever Served In The WEALTH at work ? No Information not available 03/21/2021 Have You Or Anyone In Your Immediate Family Ever Served In A Combat Situation? No Information not available 03/21/2021 Has Patient Had A Screening Mammogram In Past 24 Months? No Information not available 07/05/2021 Would You Like To Schedule An Appointment For A Mammography Screen? No Information not available 07/05/2021 Would You Like A Referral For Your Incontinence Or Prolapse Issue? No Information not available 07/05/2021 Is The Patient Interested In A Colorectal Cancer Screening? No Information not available 03/21/2021 MOLST No Information no t available 07/05/2021 Difficulty Hearing No Information not available 07/05/2021 Hearing Aid Use No Informati on not available 07/05/2021 Cochlear Implant No Informat ion not available 07/05/2021 Race Patient Declined Information not available 07/05/2021 Ethnicity Patient Declined Information not available 07/05/2021 What Was The Date Of Your Most Recent Tobacco Screening? 06/14/2022 Information not available 06/15/2022 What Is Your Current Pack Years? 10packyears Information not available 07/05/2021 Have You Ever Been Counseled For Unhealthy Alcohol Use? Yes Information not available 07/05/2021 Do You Have Any Pets? No Information not available 03/21/2021 Do You Use Protection During Sex? Always Information not available 03/21/2021 What Is Your Relationship Status? Unknown Information not available 03/21/2021 Do You Use Your Seat Belt Or Car Seat Routinely? Yes Information not available 03/21/2021 Are You Sexually Active? Yes Information not available 03/21/2021 Do You Have Smoke And Carbon Monoxide Detectors In Your Home? Yes Information not available 03/21/2021 At What Age Did You Start Smoking Tobacco? 19 Information not available 07/05/2021 Are You Passively Exposed To Smoke? No Information not available 03/21/2021 How Much Tobacco Do You Smoke? 0.5 PPD Information not available 07/05/2021 Do You Feel Stressed (tense, Restless, Nervous, Or Anxious, Or Unable To Sleep At Night)? [id number] Information not available 07/05/2021 Do You Use Any Illicit Or Recreational Drugs? No Information not available 03/21/2021 Do You Use Sunscreen Routinely? Yes Information not available 03/21/2021 Has Tobacco Cessation Counseling Been Provided? Yes Information not available 07/05/2021 On What Date Was Tobacco Cessation Counseling Provided? 06/14/2022 Information not available 06/15/2022 How Many Years Have You Smoked Tobacco? 5 Information not available 07/05/2021 Are You Currently In School? No Information not available 03/21/2021 Do You Or Have You Ever Used Any Other Forms Of Tobacco Or Nicotine? No Information not available 03/21/2021 Sex: Unknown Functional Status Question Answer Note LastModified by Organizat ion Details LastModified Time Do you have difficulty walking or climbing stairs? No Information not available 03/21/2021 Do you have transportation difficulties? No Information not available 03/21/2021 Do you have difficulty doing errands alone? No Information not available 03/21/2021 Are you able to care for yourself? Yes Information n ot available 03/21/2021 Do you have difficulty dressing or bathing? No Information not available 03/21/2021 What is your exercise level? Occasional Information not available 03/21/2021 Mental Status Question Answer Note LastModified by Organization D etails LastModified Time Do you have difficulty concentrating, remembering or making decisions? No Information no t available 03/21/2021 Family History Relationship Description Onset Age of this Age Resolved Age Notes LastModified by Organization Details LastModified Time Father No current problems or disability Not available 07/05 10:50:34 Mother No current problems or disability Not available 07/05 10:50:34 Medical History No medical history recorded. Past Encounters Encounter ID Performer Location Encounter Start Date Encounter Closed Date Diagnosis/Indication Diagnosis SNOMED-CT Code Diagnosis ICD10 Code Diagnosis Note [id number] RONALDO REYES MD [facility] [address] 01/18/2021 15:17:17 01/18/2021 17:03:34 Adult health examination 238624224 Z00.01 Multiple joint pain 3567 8005 M25.50 Generalize d anxiety disorder 84197823 F41.1 [id number] RONALDO REYES MD [facility] [address] 05/03/2021 13:13:58 05/03/2021 15:59:07 Bipolar disorder 60619803 F31.9 Annual visit 678592435 Z 00.01 Anxiety 57251091 F41.9 Schizophrenia 35440940 F 20.9 Joint pain 97160254 M25. 50 [id number] RONALDO REYES MD [address] [address] 03/23/2022 08:54:08 03/23/2022 10:15:33 Substance abuse 69732546 F19.10 Encouraged to continue to avoid substance abuse and continuous supportive relationsh ips. Erectile dysfunction 860 023045 F52.21 May try Viagra will labs pending. [id number] RONALDO REYES MD [address] [address] 06/14/2022 12:54:52 06/14/2022 14:37:00 Erectile dysfunction 854989072 F52.21 May try Viagra will labs pending. Male infertility 8587224 N46.9 [id number] RONALDO REYES MD [address] [address] 10/14/2022 15:35:51 10/14/2022 17:24:36 Obsessive-compulsive disorder 659700832 F42.9 Had been on Zoloft in the past we will try fluoxetine since he is reinitiati ng medical therapy. Anxiety 58428174 F41.9 Exercise encouraged Mood disorder 39612364 F 38 Schizophrenia 51975930 F 20.9 Patient and his mother will seek to find a new psychiatri st but we will bridge him with his medication s in the meantime. Patient seems to be very stable at this time. Adult [facility] th examination 947841096 Z00.01 [id number] RONALDO REYES MD [address] [address] 11/15/2022 12:55:52 11/15/2022 13:37:59 Anxiety 54599019 F41.9 Exercise encouraged Mood disorder 30230300 F 38 Obsessive- compulsive disorder 573759399 F42.9 Had been on Zoloft in the past we will try fluoxetine since he is reinitiati ng medical therapy. Erectile dysfunction 860 097057 F52.21 May try Viagra will labs pending. [id number] RONALDO REYES MD [address] [address] 07/28/2023 17:30:47 08/09/2023 12:58:52 Substance abuse 93352622 F19.10 Encouraged to continue to avoid substance abuse and continuous supportive relationsh ips.Refer to [facility] for substance abuse treatment Fracture of mandible [id number] S02.609A Will refer to surgery for repair. [id number] PAULINE HULL NP [facility] [address] 12/26/2023 11:45:16 12/26/2023 12:24:05 Mood disorder 57393709 F39 Irritabili ty and anger 290464358 R45.4 also on monthly Haldol 150mg injection monthly- given by mother, who is certified personal finance counselor, able to administer Haldol injections Health Concerns Section Related Observation LastModified by Organization Detai ls LastModified Time None Recorded Concern Status LastModified by Organization Details LastModified Time None Recorded Advance Directives Directive N: Payers Encounter Date Sequence Insurance Name Policy Number Policy Leblanc Covered Member ID Leblanc Member ID Guarantor Name 06/14/2022 2 [place] [facility] Jason T Thambash [id number] Jason T Thambash 06/14/2022 1 [place] [employer] Jason T Thambash [id number] Jason T Thambash 10/14/2022 2 [place] [facility] Jason T Thambash [id number] Jason T Thambash 10/14/2022 1 [place] [employer] [employer] [place] Jason T Thambash [id number] Jason T Thambash 11/15/2022 2 [place] [facility] Jason T Thambash [id number] Jason T Thambash 11/15/2022 1 [place] Jason T Thambash [id number] Jason T Thambash 07/28/2023 2 [place] [facility] Jason T Thambash [id number] Jason Oliva 07/28/2023 1 MEDICARE [place]: [facility] Jason Oliva [id number] Jason Oliva 12/26/2023 2 [place] [facility] Jason Oliva [id number] Jason Oliva 12/26/2023 1 [place] [facility] Jason Oliva [id number] Jason Oliva Notes Date Note Type Note Provider Name and Address Organization Details Recorded Time 06/14/2022 text/html Male infertility : Patient has been trying for 2 years with his partner to have a baby but have been unsuccessful. He occasionally has had difficulty getting a full erection and has used sildenafil. However, testosterone level was 1026. He is on no supplements. RONALDO REYES MD [address] [place] [address], [phone], [facility] 06/15/2022 17:00:41 10/14/2022 text/html Obsessive-compul siv e disorder: Patient is here with his mother and he is very anxious almost all the time. He has tattoos from his face neck chest arms torso and legs. He does not know exactly what he wants to do for work and life and right now is still living independently but is followed very closely by his mother. Patient was encouraged to start any kind of job which would be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
--- OUTSIDE RECORDS SUMMARY | 2024-04-27 17:58 | XMS_ITS | Clinical Summary ---
Author Organization [employer] Address [address] [place] [address] Care Team Providers Care Procurement Analyst Name Role Phone Unavailable Primary Care Provider Unavailabl e Allergies No known active allergies Medications cloNIDine (Catapres) 0.1 MG tablet Take 0.1 mg by mouth if needed each day (withdrawal symptoms). 12/11/2023 Active divalproex (Depakote ER) 500 MG 24 hr tablet Take 1,000 mg by mouth Once per day. 12/11/2023 Active haloperidol decanoate (Haldol Decanoate) 100 MG/ML injection Inject 150 mg into the muscle every 28 (twenty-eight ) days. 11/06/2023 Active Buprenorphine HCl-Naloxone HCl (Suboxone) 8-2 MG SL filmIndications :Opioid dependence on agonist therapy (CMS/HCC) Place 1 Film under the tongue 2 times daily. 56 Film 1 12/12/2023 Active hydrOXYzine pamoate (Vistaril) 25 MG capsuleIndicati ons:Opioid dependence on agonist therapy (CMS/HCC) Take 1-2 capsules (25-50 mg) by mouth if needed at bedtime for itching. 60 capsule 3 12/12/2023 Active haloperidol (Haldol) 5 MG tabletIndicatio ns:Schizoaffect norman disorder, bipolar type (CMS/HCC) Take 1 tablet (5 mg) by mouth Once per day. (In addition to one 2mg tab daily) 30 tablet 1 01/08/2024 Active haloperidol (Haldol) 2 MG tabletIndicatio ns:Schizoaffect norman disorder, bipolar type (CMS/HCC) Take 1 tablet (2 mg) by mouth Once per day. (In addition to one 5mg tab daily) 30 tablet 1 01/08/2024 Active buprenorphine-n aloxone (Zubsolv) 5.7-1.4 MG SL tabletIndicatio ns:Opioid dependence on agonist therapy (CMS/HCC) Place 1 tablet under the tongue 3 times daily. 84 tablet 1 01/09/2024 Active QUEtiapine (SEROquel) 100 MG tabletIndicatio ns:Schizoaffect norman disorder, bipolar type (CMS/HCC) Take 1 tablet (100 mg) by mouth at bedtime. 30 tablet 3 01/23/2024 Active Active Problems Problem Noted Date Diagnosed Date Stimulant use disorder 12/13/2023 Assessment & Plan (12/13/2023 10:36 AM EST): - Confirmed stimulant use disorder dx per pt's reported hx and multiple ED visit notes in Epic - Reviewed that there were some off-label pharmacotherapy options that could be considered if pt developed any cravings to use stimulants; will defer initiation of any of these options at this time, and discuss further at next visit. Opioid dependence on agonist therapy 12/13/2023 Assessment & Plan (03/13/2024 7:45 AM EST): - OUD mgmt remains unchanged since last visit, with continued use of Zubsolv at lower than Rxed dosing (taking once daily vs Rxed TID dosing) - Counseled on risks of ongoing inadequate mgmt of opioid cravings, including increased risk of opioid relapse - Urged pt to try taking Zubsolv more frequently, and recommended trial of mint on tongue with concurrent use of Zubsolv tabs sublingually - Encouraged to consider trial of injectable buprenorphine via Sublocade or Brixadi; pt remains reluctant to pursue this option - Recommend keeping appt w/ psych assistant as scheduled for 01/24 - Continue close f/up every 1-2 weeks with goal of avoiding OUD destabilization Assessment & Plan (03/13/2024 7:41 AM EST): - OUD mgmt at continued risk of destabilization given use of Zubsolv at less than Rxed dosing - Reviewed alternatives to consider, including injectable formulation; pt defers this option at this time - Pt agreeable to considering use of Zubsolv closer to Rxed dosing frequency - Rx refill not needed at this time - F/up to continue every 1-2 weeks to ensure that OUD mgmt is not destabilized Assessment & Plan (02/27/2024 12:47 PM EST): - OUD mgmt at increased risk of destabilization given use of Suboxone at less than Rxed dosing due to intolerance of taste - Reviewed alternatives to consider, including injectable formulation as well as alternative oral formulations such as Zubsolv - Pt agreeable to Zubsolv trial; reviewed instructions for use and difference in dosing vs Suboxone - Rx sent to pharmacy; [facility] reviewed - F/up closely over the coming weeks to ensure that OUD mgmt remains stable Assessment & Plan (01/10/2024 5:41 PM EST): - OUD mgmt remains relatively stable but at significant risk of destabilization given inadequate mgmt of cravings - Recommend increasing dose of Zubsolv given they taste significantly better than Suboxone - Will plan to remain in close contact within the coming week to ensure that opioid cravings improve with increased dose of buprenorphine - Recommend increasing engagement w/ all available supports and resources - F/up on 01/15/24, sooner if needed Assessment & Plan (12/13/2023 10:38 AM EST): - OUD hx/dx confirmed; pt is appropriate candidate for MAT enrollment. - Reviewed program requirements and plan of care - Suboxone Rx sent to pharmacy (to be filled in ~4 weeks given 30-day supply was picked up yesterday as Rxed by [facility] care team); [facility] reviewed. - Recommend trial of hydroxyzine for restlessness that may develop in setting of physical/mental cravings or urges to use; Rx sent to pharmacy in case restlessness worsens - Encouraged to pursue engagement with all available supportive resources, including various groups/meetings ([facility], [facility], [facility], etc.) - F/up appt scheduled in 1 month, and instructed to contact care team prior with any concerns. Schizoaffective disorder, bipolar type 8 Overview (12/13/2023): Disability - bipolar and schizophrenia - Dr Kisha Clifford [phone] - [facility] Outside Source Comment: Overview: Disability - bipolar and schizophrenia - Dr Kisha Clifford [phone] - [facility] Assessment & Plan (02/27/2024 1:17 PM EST): - Reviewed potential for transition to oral haldol formulation given pt's disinterest in continuing injectable formulation; pt agreeable - Discussed oral dosing equivalent w/ BH, and reviewed w/ pt. - Rx sent to pharmacy; side effects reviewed - Provided with additional resources for finding external psychiatrist Assessment & Plan (12/13/2023 10:37 AM EST): - Well controlled on current regimen, and will be due for next IM haldol injection in 2 weeks - Plan to speak further with outside PCP re: bridging of current regimen - Encouraged to contact MAT care team for any assistance with coordinating a bridge plan, and will ensure pt does not have interruption in med maintenance given significant risk of destabilization - F/up at next MAT appt, sooner if needed Social History Tobacco Use Types Packs/Day Years Used Date Smoking Tobacco: Never Assessed Sex and Gender Information Value Date Recorded Sex Assigned at Male 11/23/2023 10:17 AM EDT Legal Sex Male 10:13 AM EDT Gender Identity Male 11/23/2023 10:17 AM EDT Sexual Orientation Straight 11/23/2023 10 :17 AM EDT Plan of Treatment Health Maintenance Due Date Last Done Comments Depression Screening 1994 HIV Screening 1994 SDOH Screening 1994 Alcohol/Substance Use Screening 2006 Tobacco Screening 2006 Family Planning (PISQ) 2009 Hepatitis C Screening 2012 COVID-19 Vaccine ( season) 2023 Influenza Vaccine (#1) 2023 6, 12/01/2014, 10/21/2012, Additional history exists DTaP/Tdap/Td Vaccines (10 - Td or Tdap) 12/01/2032 12/01/2022, 01/06/2012, 03/09/2007, Additional history exists Zoster Vaccines (1 of 2) 2044 RSV Patients and Patients Aged 60 years or older (1 - 1-dose 75+ series) 2069 Hepatitis B Vaccines Completed 02/17/1995, 1994, 1994 HIB Vaccines Completed 08/08/1995, 11/06, 1994, Additional history exists IPV Vaccines Completed 10/08/1999, 02/1999, 1994, Additional history exists Meningococcal Vaccine Aged Out 12/05/2006 No jelena clotilde eligible based on patient's age to complete this topic HPV Vaccines Aged Out No longer eligi ble based on patient's age to complete this topic Hepatitis A Vaccines Aged Out No long er eligible based on patient's age to complete this topic Pneumococcal Vaccine: Pediatrics (0 to 5 Years) and At-Risk Patients (6 to 49) Years) Aged Out No longer eligible based on patient's age to complete this topic RSV under 20 months Aged Out No longe r eligible based on patient's age to complete this topic Rotavirus Vaccines Aged Out No longer eligible based on patient's age to complete this topic Insurance [employer] [place] PPO [facility]
--- OUTSIDE RECORDS SUMMARY | 2024-04-27 17:58 | XMS_ITS ---
Author Organization [facility] Address [address] [place] [address] Care Team Providers Care Blogs Manager Name Role Phone Jay White [facility] [phone] REASON FOR VISIT JS New New Suboxone (KLINIC) DOXY [phone], This encounter is being provided at the patient's request and with their consent, using audio-visual telemedicine technology of [facility]. Documentation and billing utilize [employer]. Encounters Encounter Location Date Provider Diagnosis [facility] [address] [place], [place] [id number] 11/28/2023 Jay White Opioid dependence F11.20 Assessments Encounter Date Diagnosis (ICD Code) Assessment Notes Treatment Notes Treatment Clinical Notes Section Notes 11/28/2023 Opioid dependence (ICD-10 - F11.20) Plan Of Treatment Pending Test Test Name Order Date Drug Screening In Office 11/28/2023 Progress Notes * Jason BOR[birth year]ESDOB:[birth year] (29 yo M)Acc No.[id number]:11/28/2023 Patient:?Jason BORGES Provider:?Jay White MD :1995???Age:28 Y???Sex:Male Maximino e:11/28/2023 Address:[address] [id number] Subjective: * Chief Complaints: * ???1. JS New New Suboxone (K LINIC) DOXY [phone]. 2. This encounter is being provided at the patient's request and with their consent, using audio-visual telemedicine technology of [facility]. Documentation and billing utilize [employer].. * Medical History:? * Implants:? Objective: * Vitals:? * Physical Examination:? Assessment: * Assessment: 1.?Opioid dependence - F11.2 0??? Plan: * Treatment: * Procedure Codes:?86552 DRUG TEST PRSMV DIR OPT OBS * Care Plan Details* * Electronic signature of Caleb White MD, [id number] on 2024 at 12:42 PM EDT Sign off status: Pending * Provider:?Jay White MD Date:?11/27 Generated for Ashley matthews/Dakota/Adriannaitting on:?2024 12:42 PM EDT
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
--- OUTSIDE RECORDS SUMMARY | 2024-04-27 17:58 | XMS_ITS | Patient Health Record ---
Author Organization [facility] Address [address] [place] [address] Care Team Providers Care Senior Manager Asset Protection Name Role Phone Jay White Unavailable [phone] Reason For Referral No Information Problems Problem Type SNOMED Code ICD Code Onset Dates Problem Status W/U Status Risk Notes Problem Opioid dependence (56943953) Opioid dependence (F11.20) Active confirmed Encounters Encounter Location Date Provider Diagnosis [facility] [address] [place] [id number] 11/28/2023 Jay White [facility] [address] [place] [id number] 11/28/2023 Jay White Plan Of Treatment No Information Insurance Providers Payer Name Payer Address Payer Phone Subscriber Number Group Number Insured Name Patient Relationship to Insured Coverage Start Date Coverage End Date Medicare [employer] [place] [id number] [address] [place] [address] [phone] [id number] [phone] [id number] Jason Oliva Self - patient is the insured 4
--- OUTSIDE RECORDS SUMMARY | 2024-04-27 17:58 | XMS_ITS | Clinical Summary ---
Author Organization [facility] Address [address] [place] [phone] Phone Care Team Providers Care [employer] Name Role Phone Ronaldo Reyes MD Primary Care Provider [phone] Allergies No known active allergies Medications Medication Sig Dispensed Refills Start Date End Date Status divalproex (DEPAKOTE) 250 MG 24 hr tablet Take 3 tablets (750 mg total) by mouth nightly. 30 tablet 0 09/14/2015 Active Additional Information Patient taking differently: 500 mgOral Nightly, Reported on 12/25/2021 QUEtiapine (SEROQUEL) 300 MG tablet Take 2 tablets (600 mg total) by mouth nightly. 60 tablet 0 09/14/2015 Active Additional Information Patient taking differently: 400 mgOral Nightly, Reported on 12/25/2021 diclofenac sodium (VOLTAREN XR) 100 mg 24 hr tablet Take 1 tablet (100 mg total) by mouth daily. 20 tablet 1 09/15/2020 Active orphenadrine (NORFLEX) 100 mg tablet Take 1 tablet (100 mg total) by mouth 2 (two) times a day. 20 tablet 1 09/15/2020 Active Active Problems Problem Noted Date Diagnosed Date Annual physical exam 05/26/2016 Mood disorder 09/10/2015 Sexually transmitted disease 03/29/2014 Overview (05/26/2016): STD - Sexually transmitted disease Uncoded S/P History and phys ical examination, annual for health maintenance 01/06/2012 Overview (03/29/2014): S/P History and physical examination, annual for health maintenance Immunizations Name Administration Dates Next Due DTaP, unspecified formulation 10/08/1999 ,08/08/1995,1994,1994,1994 HPV, unspecified formulation 03/09/2012( Deferred: Patient Decision - , Ordered By: [id number]),01/06/2012(Deferred: Patient Decision - , Ordered By: [id number]) Hepatitis B, unspecified formulation 02/17/1995, 1994,1994 Hib, unspecified formulation 08/08/1995, 1994,1994,1994 Influenza Nasal, Unspecified Formulation 11/03/2014,08/27/2013(Deferred: Patient Decision) Influenza Trivalent Preserva tive Free IM 03/09/2012 Influenza, Unspecified Formulation 06/10,12/01/2014,10/21/2012,2011(Deferred: Patient Decision - , Ordered By: [id number]) MMR 10/08/1999,08/08/1995 Polio, Unspecified Formulation 0,1994,1994,1994 Tdap 01/06/2012,03/09/2007 Varicella 07/10/1995 Family History Medical History Relation Comments Asthma Maternal Grandfather asthma Cancer Maternal Grandfather Malignant n eoplastic disease Relation Status Comments Maternal Grandfather Social History Tobacco Use Types Packs/Day Years Used Date Smoking Tobacco: Never Assessed Cigarettes 0 09/10/2015 - 05/2015 Tobacco Cessation:Counseling Given: Not Answered Alcohol Use Standard Drinks/Week Comments Yes 0 (1 standard drink = 0.6 oz pur e alcohol) 3 times a week Education Answer Date Recorded Are you interested in more education? Not on anne-marie e 06/03/2022 Are you concerned about learning? Not on file 06/03/2022 No 06/03/2022 No 06/03/2022 Digital Access Answer Date Recorded No 07/04/2022 No 07/04/2022 No 07/04/2022 Reliable internet access at home? Not on file 07/04/2022 Device with a working camera? Not on file Intimate Partner Violence Answer Date R ecorded Are you denied basic needs s uch as food, clothing, or medical care? No 10/15/2023 In the past 12 months have y ou been in a relationship with a person who hurts, threatens, or tries to control you? No 10/15/2023 Are you denied basic needs s uch as food, clothing, or medical care? No 10/15/2023 In the past 12 months have y ou been in a relationship with a person who hurts, threatens, or tries to control you? No 10/15/2023 Sex and Gender Information Value Date Recorded Sex Assigned at Male 07/20/2023 3:58 PM EDT Gender Identity Male 07/20/2023 3:58 PM EDT Sexual Orientation Choose not to disclose 2023 3:58 PM EDT Last Filed Vital Signs Vital Sign Reading Time Taken Comments Blood Pressure 106/64 10/16/2023 6:28 AM EDT Pulse 83 10/16/2023 6:28 AM EDT Temperature 36.6 ??C (97.9 ??F) 10/16/2023 3:34 AM ED T Respiratory Rate 18 10/16/2023 6:28 AM EDT Oxygen Saturation 97% 10/16/2023 6:28 AM EDT Inhaled Oxygen Concentration - - Weight 70.8 kg (156 lb) 10/16/2020 2:32 PM EDT Height 182.9 cm (6') 10/16/2020 2:32 PM EDT Body Mass Index 21.16 10/16/2020 2:32 PM EDT Plan of Treatment Health Maintenance Due Date Last Done Comments SMOKING Hx and SMOKELESS TOBACCO SCREENING 04/28/2007 DEPRESSION SCREENING 06/23/2020 06/24/2019 Adult Td,Tdap Booster 01/05/2022 01/06/2012 , 03/09/2007, 12/05/2006 INFLUENZA VACCINE (#1) 2023 6, 12/01/2014, 10/21/2012, Additional history exists COVID-19 VACCINE ( season) 2023 VALPROIC ACID (DEPAKENE) LEVEL 10/14/2024 10/15/2023, 12/25/2021, 09/14/2015 HIB VACCINES Completed 08/08/1995, 11/06, 1994, Additional history exists HEPATITIS C SCREENING Completed 11/28/2014 , 11/28/2014, 08/27/2013, Additional history exists HIV ONE-TIME SCREENING (18-65 YEARS) Completed 11/28/2014 HEPATITIS A VACCINES Aged Out No long er eligible based on patient's age to complete this topic MENINGOCOCCAL VACCINES (ACWY) Aged Out No longer eligible based on patient's age to complete this topic PNEUMOCOCCAL VACCINES (0-49 years) Aged Out No longer eligible based on patient's age to complete this topic Medical Devices Not on file Procedures Procedure Name Priority Date/Time Associated Diagnosis Comments VALPROIC ACID STAT 10/15/2023 8:10 PM EDT HEPATITIS C ANTIBODY, QUALITATIVE Routine 11/28/2014 12:15 PM EDT from Last 3 Months or Most Recently Relevant to Health Maintenance Results * Valproic acid (10/15/2023 8:10 PM EDT) VALPROIC ACID 58.0 50.0 - 100.0 ug/mL [facility] Blood 10/15/2023 8:10 PM EDT 10/15/2023 8:16 PM EDT Dinorah Patel PA-C LAB BLOOD ORDERAB LES [facility] [address] [place] [address] * Hepatitis C antibody, qualitative (11/28/2014 12:15 PM EDT) HEPATITIS C w/reflex RIBA Non Reactive NonReactive [facility] Comment:METHOD: CENTAUR CHEM ILUMINESCENCE IMMUNOASSAY (MARIANA) 11/28/2014 12:1 5 PM EDT 11/28/2014 2:41 PM EDT Narrative [facility] - 11/28/2014 5:58 PM EDT [facility], [address] [facility] [address], Local Tanker Truck Driver: Shan Franz M.D. Ronaldo Reyes MD LAB BLOOD ORDERABLE S [facility] [address] [place] [address] from Last 3 Months or Most Recently Relevant to Health Maintenance Jason Oliva Personal/Family Self [address] [place], [place] Jason Oliva Personal/Family Self [address] [place] Jason Oliva Personal/Family Self [address] [place] Jason Oliva Personal/Family Self [address] [place] Marcus T Personal/Family Self [address] [place], Jason T Personal/Family Self [address] [place], Jason T Personal/Family Self [address] [place], Jason T Personal/Family Self [address] [place], Jason T Personal/Family Self 1995 [address] [facility] [place] WALDEN, Jason T Personal/Family Self 1995 [address] [place], Jason T Personal/Family Self 1995 [address] [place] A[place], Jason T Third [employer] Party Liability Self 1995 [address] [facility] Marcus T Third [employer] Party Liability Self 1995 [address] [facility] LAURA Walden, Jason T Personal/Family Self 1995 [address] [facility] LAURA WALDEN Advance Directives For more information, please contact: [phone] (9AM - 5PM [facility], Monday-Monday) * Full Code (Presumed) (Latest Code Status on File) Date Activated Date Inactivated Comments 09/10/2015 11:05 PM 09/14/2015 5:41 PM Care Teams [employer] Relationship Specialty Start Date End Date Ronaldo Reyes MD [address] [place] [address] [email or web address] PCP - General 05/09/18 Additional Source Comments The information contained in this document represents components of the legal health record. It is not the complete legal health record.[facility]
[2024-04-27 18:09] LABS: Amphetamine Screen Urine Not Detected (Not Detect); Barbiturates, Urine Not Detected (Not Detect); Benzodiazepines Screen Urine Not Detected (Not Detect); Buprenorphine Scr Positive (Not Detect); Cannabinoid Screen Urine Not Detected (Not Detect); Cocaine Screen Urine Not Detected (Not Detect); Fentanyl, urine POSITIVE (Not Detect); Methadone Screen, Urine Positive (Not Detect); Opiate Screen Urine Not Detected (Not Detect); Oxycodone Screen Urine Not Detected (Not Detect); Phencyclidine Screen Urine Not Detected (Not Detect)
[2024-04-27 18:12] LABS: Alanine Aminotransferase 10 U/L (0-40); Albumin Level 4.2 g/dL (3.5-5.0); Alkaline Phosphatase 55 U/L (39-117); Anion Gap 15 (12-20); Aspartate Amino Transferase 17 U/L (5-37); Bilirubin Total 0.4 mg/dL (0.0-1.0); Blood Urea Nitrogen 11 mg/dL (9-16); Calcium 9.4 mg/dL (8.4-10.2); Carbon Dioxide 31 mmol/L (22-29); Chloride 98 mmol/L (96-108); Creatinine Clr Calc Pharmacy 108.7; Estimated Glomerular Filt Rate > 60; Ethanol < 10 mg/dL; Glucose Random 151 mg/dL (60-115); Salicylate < 5.0 mg/dL (15-30); Sodium 139 mmol/L (135-145); Total Protein 8.4 g/dL (6.5-8.0)
[2024-04-27 19:36] VITALS: BP 138/90; PULSE 108; RESP 16; TEMP 36.8; O2SAT 92
[2024-04-27 22:10] VITALS: BP 142/84; PULSE 113; RESP 16; TEMP 36.8; O2SAT 92
[2024-04-27 22:29] VITALS: BP 142/84; PULSE 113; RESP 16; TEMP 36.8; O2SAT 92
== END 2024-04-27 22:31 ==
PROVIDERS: Emergency Provider Emergency Medicine
DX: F19.10 Other psychoactive substance abuse, uncomplicated (principal)
CPT/HCPCS: 36415; 80053; 80179; 80307; 85025; 99285